=== PATIENT | female | born 1940 | race Caucasian/White ===

== ENCOUNTER 2020-11-06 13:01 | Outpatient (CLI) | payer MEDICARE | END 2020-11-06 13:02 | disposition home or self-care (01) | LOC: BICULT 13:01 | PROVIDERS: ATTEND Internal Medicine Nephrology | DX: N18.30 Chronic kidney disease, stage 3 unspecified (principal); N28.1 Cyst of kidney, acquired | CPT/HCPCS: 76770; 80048; 82040; 82306; 83735; 83970; 84100; 85025; 86038; 86225 ==

== ENCOUNTER 2023-02-16 11:17 | Outpatient (CLI) | payer OTHER | END 2023-02-16 11:18 | disposition home or self-care (01) | LOC: SCSRAD 11:17 | PROVIDERS: ATTEND Nurse Practitioner Family | DX: S99.921A Unspecified injury of right foot, initial encounter (principal); S92.331B Displaced fracture of third metatarsal bone, right foot, initial encounter for open fracture; S92.341A Displaced fracture of fourth metatarsal bone, right foot, initial encounter for closed fracture; S92.351A Displaced fracture of fifth metatarsal bone, right foot, initial encounter for closed fracture ==